=== PATIENT | male | born 1980 | race Caucasian/White ===

== ENCOUNTER 2024-06-10 08:06 | Emergency (ER) | payer MEDICAID ==
[~2024-06-10] VITALS: Ht 160 cm; Wt 66.4 kg
[2024-06-10] MEDS ORDERED: SYNTHROID125 MCG PO (08:25)
[2024-06-10] MEDS ORDERED: WELLBUTRIN SR150 MG PO (08:26)
[2024-06-10] MEDS ORDERED: TETRACAINE HCL 0.5% 4 ML BTL OD SCH (09:00)
[2024-06-10] MEDS ORDERED: AMOXICILLIN500 MG PO (12:43)
[2024-06-10] MEDS ORDERED: ERYTHROMYCIN1 GM OP (12:43)
[2024-06-10 13:15] VITALS: BP 128/99
== END 2024-06-10 13:13 | disposition home or self-care (01) ==
LOC: ED 08:06
DX: S05.01XA Injury of conjunctiva and corneal abrasion without foreign body, right eye, initial encounter (principal); E03.9 Hypothyroidism, unspecified; W22.8XXA Striking against or struck by other objects, initial encounter; Z79.890 Hormone replacement therapy
CPT/HCPCS: 70480; 99283-25